=== PATIENT | male | born 1975 | race Caucasian/White ===

== ENCOUNTER 2018-02-22 11:27 | Emergency (ER) | payer OTHER, SELFPAY ==
[2018-02-22 11:28] VITALS: BP 138/92; PULSE 61; RESP 18; TEMP 36.9; O2SAT 100; BMI 23.7
--- NOTE | 2018-02-22 11:45 | CT_ITS ---
STUDY: CT BRAIN WITHOUT CONTRAST REASON FOR EXAM: Male, 42 years old. LEFT EYE VISION CHANGES 30 MIN [employer] RADIATION DOSAGE (If Supplied By Facility): CTDIvol = ( 44.99 ) mGy, DLP = ( 829.85 ) mGycm TECHNIQUE: Transaxial CT imaging of the brain was performed without administration of intravenous contrast material. Individualized dose optimization techniques were used for this CT. COMPARISON: None. FINDINGS: Normal soft tissue structures. Normal calvarium. Normal size ventricles and extra-axial spaces for the patient's age. Normal white matter tracts of the cerebral hemispheres. Normal basal ganglia and thalami. Normal brainstem. There is a hyperdense lesion in the right middle cerebellar peduncle measuring 8mm image #11 may represent a cavernous hemangioma. Further evaluation by MRI would be recommended to exclude a neoplastic process. There is no intracranial hemorrhage. There are no findings of an acute ischemic infarction. There is mucoperiosteal inflammatory disease of the paranasal sinuses consistent with mild chronic sinusitis. CT/Brain/Head without Contrast IMPRESSION: There is a hyperdense lesion in the right middle cerebellar peduncle measuring 8mm image #11 may represent a cavernous hemangioma. Further evaluation by MRI would be recommended to exclude a neoplastic process. Electronically Signed: Ashutosh Antoine MD at 12:34 EDT Tel , Service support ,
--- NOTE | 2018-02-22 13:11 | MRI_ITS ---
STUDY: MRI BRAIN WITH AND WITHOUT CONTRAST REASON FOR EXAM: Male, 42 years old. Vision changes left eye this am, f/u to abnormal ct brain. TECHNIQUE: Standardized multiplanar fat and water weighted pulse sequences were obtained. 9 ml of Gadavist contrast material was administered intravenously for the contrast portion of the examination. COMPARISON: CT of the head dated 02/22/2018 FINDINGS: Normal size of the ventricles and extra-axial spaces for the patient's age. Normal white matter tracts of the supratentorial brain. Normal bilateral basal ganglia. Normal thalami. There is no extra-axial fluid accumulation. Normal flow voids within the major intracranial circulation suggesting patency by spin echo criteria. Normal venous enhancement. There is no enhancing intra-axial or extra-axial abnormality. Normal sella turcica, pituitary gland, infundibular stalk, optic chiasm and hypothalamus. Normal tectal plate and pineal gland. Normal midbrain, monika and medulla. 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 Normal basal cisterns. Normal bilateral temporal bones. Normal bilateral internal auditory canals. No demonstrated orbital abnormality, within the constraints of a routine brain study. Normal visualized paranasal sinuses. Normal calvarium and skull base. Normal visualized soft tissue structures. Normal visualized upper cervical spine. MRI/Brain W/WO Contrast IMPRESSION: 8 mm right cerebellar cavernoma. Comparison with prior examination if available or follow-up in 4-6 weeks is recommended. Electronically Signed: Brooke Riddle MD at 15:33 EDT Tel , Service support ,
[2018-02-22 14:05] VITALS: BP 120/65; PULSE 78; RESP 16; O2SAT 100
--- NOTE | 2018-02-22 15:54 | ED.VISSUMM ---
- ER Visit Summary Date of Service: 02/22/18 Chief Complaint: Sparkling spots in vision History of Present Illness: The patient is a 42 M with a change in his vision that started about an hour prior to arrival. This only seems to involve his left eye. In his lateral visual field he has flashing and waving lights. He denies any headache. He denies any prior history of this. Nothing seems to bring it on or make it worse. At the time of my evaluation, he says it has almost resolved. Denies any other visual changes. Denies fever or recent illness. Denies neck pain. Denies rash. Denies weakness or numbness. Denies speech changes or facial droop. Denies any history of stroke. Denies any history of migraines. He has a history of a thyroidectomy and takes Synthroid. Otherwise no medical issues. Non-smoker. Physical Examination: Afebrile and vital signs unremarkable. Patient sitting upright and appears nontoxic and in no acute distress. HEENT exam unremarkable. Funduscopic exam unremarkable. Cranial nerves grossly intact. Neck nontender. Heart regular. Lungs clear. Skin normal without rash. No focal or lateralizing neurologic abnormalities. Normal gait. Normal affect. Test Results: See below Emergency Department Course and Treatment: Patient's symptoms were concerning for migraine. Nothing to suggest a primary ocular problem. Nothing to suggest stroke or TIA. He never had migraines before. He is not having a headache now. A CT head was performed. CT showed a right mid cerebellar mass concerning for cavernous hemangioma. MRI was recommended. MRI was performed and showed a cerebellar cavernoma, 8 mm in diameter. I spoke with the patient. He had a scan about 25 years ago and he believes he had the same finding then. He does not remember all the details. Follow-up in 4-6 weeks was advised, and the patient will follow up with neurosurgery. Patient symptoms have resolved. He declined pain medication. Patient will follow up with his PCP for recheck. Return for any new or worsening symptoms. Risks such as bleeding were discussed. I have low suspicion that this cavernoma is causing his symptoms, especially if it has been there for 25 years. Treatment Plan: As above Disposition: Discharged Impression: 1. Visual change, suspect migraine 2. 8 mm cerebellar cavernoma This note was generated with [employer] software. It may contain incorrect words, spelling, and punctuation that were not noted in review of the chart prior to signing ED Disposition - Plan for ED Patient: Chief Complaint: Vision Prob Referrals: Care Physician,No Primary [Primary Care Provider] -
--- NOTE | 2018-02-22 16:01 | ED.DEP ---
ED Disposition - Plan for ED Patient: Chief Complaint: Vision Prob Instructions: ED Headache Migraine Referrals: Enrique Araujo [NON-STAFF] -
[2018-02-22 16:21] VITALS: BP 128/74; PULSE 69; RESP 16; O2SAT 99
== END 2018-02-22 16:22 | disposition home or self-care (01) ==
PROVIDERS: Emergency Provider Emergency Medicine
DX: H53.8 Other visual disturbances (principal); D18.02 Hemangioma of intracranial structures; E89.0 Postprocedural hypothyroidism; Z79.899 Other long term (current) drug therapy; Z82.0 Family history of epilepsy and other diseases of the nervous system; Z86.73 Personal history of transient ischemic attack (TIA), and cerebral infarction without residual deficits
CPT/HCPCS: 70450; 70553; 99283; A9585; A4216